=== PATIENT | female | born 1970 | race African-American/Black ===

== ENCOUNTER 2017-04-01 11:23 | Emergency (ER) | payer OTHER ==
[2017-04-01 15:15] VITALS: BP 113/73
== END 2017-04-01 15:13 | disposition home or self-care (01) ==
LOC: ED 11:23
DX: H54.62 Unqualified visual loss, left eye, normal vision right eye (principal)

== ENCOUNTER 2017-04-06 01:35 | Emergency (ER) | payer OTHER ==
[2017-04-06 06:24] VITALS: BP 139/80
== END 2017-04-06 06:24 | disposition short-term general hospital (02) ==
LOC: ED 01:35
DX: H92.02 Otalgia, left ear (principal); I10 Essential (primary) hypertension; H54.62 Unqualified visual loss, left eye, normal vision right eye; H18.602 Keratoconus, unspecified, left eye; Z79.899 Other long term (current) drug therapy; Z79.2 Long term (current) use of antibiotics; Z94.7 Corneal transplant status

== ENCOUNTER → 2017-06-11 | Outpatient (CLI) | payer OTHER ==
[2017-06-11 08:10] LABS: UA SPECIFIC GRAVITY 1.015 (1.005-1.035); microscopic required? YES; urine erythrocyte TRACE (NEGATIVE)
[2017-06-11 08:51] LABS: ALBUMIN 3.4 g/dL (3.4-5.0); ALKALINE PHOSPHATASE 110 U/L (46-116); ALT/SGPT 27 U/L (14-59); AST/SGOT 21 U/L (15-37); BILIRUBIN TOTAL 0.71 mg/dL (0.20-1.00); CALCIUM 8.8 mg/dL (8.5-10.1); CARBON DIOXIDE 28.6 mmol/L (21-32); CHLORIDE SERUM 106 mmol/L (98-107); CHOLESTEROL 159 mg/dL (<200); CHOLESTEROL/HDL RATIO 4.3; GFR1 > 60 mL/min; GLUCOSE SERUM 102 mg/dL (74-106); HDL CHOLESTEROL 37 mg/dL (40-60); POTASSIUM SERUM 3.7 mmol/L (3.5-5.1); SODIUM SERUM 141 mmol/L (136-145); TRIGLYCERIDES 106 mg/dL (<150)
[2017-06-11 08:52] LABS: TOTAL PROTEIN, SERUM 8.5 g/dL (6.4-8.2)
[2017-06-11 13:46] LABS: PLATELET COUNT 351 x10^3mcL (130-400)
[2017-06-11 14:25] LABS: ATYPICAL LYMPH 3 %; BAND NEUTROPHIL 1 % (0-10); BASOPHIL 0 % (0-2); MONOCYTE 8 % (0-7); SEGMENTED NEUTROPHILS 50 % (37-75); rbc morphology (normal/abnorm) ABNORMAL (NORMAL)
[2017-06-11 14:26] LABS: PLATELET MORPHOLOGY PLATELETS NORMAL
== END | disposition home or self-care (01) ==
LOC: LB 07:43
PROVIDERS: Family Medicine Geriatric Medicine
DX: I10 Essential (primary) hypertension (principal); Z13.21 Encounter for screening for nutritional disorder; Z13.1 Encounter for screening for diabetes mellitus; Z13.0 Encounter for screening for diseases of the blood and blood-forming organs and certain disorders involving the immune mechanism; Z13.220 Encounter for screening for lipoid disorders; Z13.29 Encounter for screening for other suspected endocrine disorder
CPT/HCPCS: 82652

== ENCOUNTER → 2017-08-30 | Outpatient (CLI) | payer OTHER ==
[2017-08-30 11:08] LABS: PLATELET COUNT 348 x10^3mcL (130-400)
[2017-08-30 11:12] LABS: ALBUMIN 3.4 g/dL (3.4-5.0); ALKALINE PHOSPHATASE 118 U/L (46-116); ALT/SGPT 40 U/L (14-59); AST/SGOT 26 U/L (15-37); BILIRUBIN DIRECT 0.16 mg/dL (0.0-0.2); BILIRUBIN TOTAL 0.6 mg/dL (0.20-1.00); CALCIUM 8.7 mg/dL (8.5-10.1); CARBON DIOXIDE 27.9 mmol/L (21-32); CHLORIDE SERUM 106 mmol/L (98-107); CREATININE SERUM 0.9 mg/dL (0.6-1.0); GFR1 > 60 mL/min; GLUCOSE SERUM 93 mg/dL (74-106); LACTIC DEHYDROGENASE (LDH) 268 U/L (100-190); POTASSIUM SERUM 3.9 mmol/L (3.5-5.1); SODIUM SERUM 143 mmol/L (136-145)
[2017-08-30 11:13] LABS: TOTAL PROTEIN, SERUM 8.3 g/dL (6.4-8.2)
[2017-08-30 11:17] LABS: BASOPHIL % 2.5 % (0-2); RED CELL DISTRIBUTION WIDTH 18.8 % (11.5-14.5)
[2017-08-30 15:05] LABS: IRON 53 ug/dL (50-170); TOTAL IRON BINDING CAPACITY 349 ug/dL (250-450)
== END | disposition home or self-care (01) ==
LOC: LB 10:04
DX: D64.9 Anemia, unspecified (principal)

== ENCOUNTER → 2017-09-30 | Outpatient (CLI) | payer OTHER ==
[2017-09-30 11:48] LABS: PLATELET COUNT 343 x10^3mcL (130-400)
[2017-09-30 11:58] LABS: RED CELL DISTRIBUTION WIDTH 23.6 % (11.5-14.5)
[2017-09-30 11:59] LABS: ALBUMIN 3.7 g/dL (3.4-5.0); BILIRUBIN DIRECT 0.15 mg/dL (0.0-0.2); BILIRUBIN TOTAL 0.53 mg/dL (0.20-1.00); TOTAL PROTEIN, SERUM 8.9 g/dL (6.4-8.2)
== END | disposition home or self-care (01) ==
LOC: CA 10:18
PROVIDERS: Internal Medicine Interventional Cardiology
DX: D57.1 Sickle-cell disease without crisis (principal)

== ENCOUNTER → 2018-01-17 | Outpatient (CLI) | payer OTHER ==
[2018-01-17 12:48] LABS: ALBUMIN 3.4 g/dL (3.4-5.0); ALKALINE PHOSPHATASE 142 U/L (46-116); ALT/SGPT 37 U/L (14-59); AST/SGOT 24 U/L (15-37); BILIRUBIN DIRECT 0.13 mg/dL (0.0-0.2); BILIRUBIN TOTAL 0.52 mg/dL (0.20-1.00); CARBON DIOXIDE 29.3 mmol/L (21-32); CHLORIDE SERUM 107 mmol/L (98-107); GFR1 > 60 mL/min; GLUCOSE SERUM 91 mg/dL (74-106); LACTIC DEHYDROGENASE (LDH) 291 U/L (100-190); POTASSIUM SERUM 4.3 mmol/L (3.5-5.1); SODIUM SERUM 142 mmol/L (136-145)
[2018-01-17 12:50] LABS: TOTAL PROTEIN, SERUM 8.3 g/dL (6.4-8.2)
[2018-01-17 13:13] LABS: BASOPHIL % 0.9 % (0-2); PLATELET COUNT 368 x10^3mcL (130-400)
[2018-01-17 13:16] LABS: RED CELL DISTRIBUTION WIDTH 18.9 % (11.5-14.5)
== END | disposition home or self-care (01) ==
LOC: LB 12:18
PROVIDERS: Family Medicine Geriatric Medicine
DX: D57.1 Sickle-cell disease without crisis (principal); I10 Essential (primary) hypertension

== ENCOUNTER → 2018-04-10 | Outpatient (CLI) | payer OTHER ==
[2018-04-10 09:51] LABS: ALBUMIN 3.4 g/dL (3.4-5.0); BILIRUBIN DIRECT 0.13 mg/dL (0.0-0.2); BILIRUBIN TOTAL 0.54 mg/dL (0.20-1.00); TOTAL PROTEIN, SERUM 8.5 g/dL (6.4-8.2)
[2018-04-10 09:55] LABS: BASOPHIL % 1.6 % (0-2); PLATELET COUNT 350 x10^3mcL (130-400)
[2018-04-10 10:19] LABS: RED CELL DISTRIBUTION WIDTH 18.5 % (11.5-14.5)
[2018-04-10 10:35] LABS: rbc morphology (normal/abnorm) ABNORMAL (NORMAL)
[2018-04-10 10:36] LABS: target cell (codocyte) 3+
== END | disposition home or self-care (01) ==
LOC: LB 09:16
DX: D57.1 Sickle-cell disease without crisis (principal)

== ENCOUNTER → 2018-06-05 | Outpatient (CLI) | payer OTHER ==
[2018-06-05 17:05] LABS: PLATELET COUNT 384 x10^3mcL (130-400)
[2018-06-05 17:13] LABS: RED CELL DISTRIBUTION WIDTH 19.8 % (11.5-14.5)
[2018-06-05 17:29] LABS: ALBUMIN 3.4 g/dL (3.4-5.0); ALKALINE PHOSPHATASE 153 U/L (46-116); ALT/SGPT 28 U/L (14-59); AST/SGOT 25 U/L (15-37); BILIRUBIN DIRECT 0.12 mg/dL (0.0-0.2); BILIRUBIN TOTAL 0.53 mg/dL (0.20-1.00); CALCIUM 8.3 mg/dL (8.5-10.1); CARBON DIOXIDE 28.2 mmol/L (21-32); CHLORIDE SERUM 106 mmol/L (98-107); CHOLESTEROL 150 mg/dL (<200); CHOLESTEROL/HDL RATIO 4.2; FREE T4 1.03 ng/dL (0.76-1.46); GFR1 > 60 mL/min; GLUCOSE SERUM 122 mg/dL (74-106); HDL CHOLESTEROL 36 mg/dL (40-60); POTASSIUM SERUM 3.4 mmol/L (3.5-5.1); SODIUM SERUM 141 mmol/L (136-145); TRIGLYCERIDES 169 mg/dL (<150)
[2018-06-05 17:52] LABS: TOTAL PROTEIN, SERUM 8.9 g/dL (6.4-8.2)
[2018-06-05 19:06] LABS: ATYPICAL LYMPH 3 %; BAND NEUTROPHIL 2 % (0-10); BASOPHIL 0 % (0-2); MONOCYTE 7 % (0-7); SEGMENTED NEUTROPHILS 53 % (37-75)
[2018-06-05 19:07] LABS: PLATELET MORPHOLOGY PLATELETS NORMAL; ovalocyte/elliptocyte 1+; rbc morphology (normal/abnorm) ABNORMAL (NORMAL); target cell (codocyte) 1+
== END | disposition home or self-care (01) ==
LOC: LB 16:02
PROVIDERS: Family Medicine Geriatric Medicine
DX: D57.1 Sickle-cell disease without crisis (principal); Z13.29 Encounter for screening for other suspected endocrine disorder; Z13.21 Encounter for screening for nutritional disorder; Z13.1 Encounter for screening for diabetes mellitus; Z13.220 Encounter for screening for lipoid disorders
CPT/HCPCS: 82652; 84439

== ENCOUNTER → 2018-08-07 | Outpatient (CLI) | payer OTHER ==
[2018-08-07 17:51] LABS: PLATELET COUNT 261 x10^3mcL (130-400)
[2018-08-07 17:57] LABS: RED CELL DISTRIBUTION WIDTH 19.3 % (11.5-14.5)
[2018-08-07 18:05] LABS: BILIRUBIN TOTAL 0.5 mg/dL (0.20-1.00); CALCIUM 8.4 mg/dL (8.5-10.1); CARBON DIOXIDE 26.6 mmol/L (21-32); CREATININE SERUM 1.1 mg/dL (0.6-1.0); POTASSIUM SERUM 3.7 mmol/L (3.5-5.1)
[2018-08-07 18:07] LABS: ALBUMIN 3.2 g/dL (3.4-5.0); TOTAL PROTEIN, SERUM 8.4 g/dL (6.4-8.2)
[2018-08-07 18:27] LABS: ATYPICAL LYMPH 1 %; BAND NEUTROPHIL 5 % (0-10); BASOPHIL 0 % (0-2); MONOCYTE 12 % (0-7); SEGMENTED NEUTROPHILS 53 % (37-75); rbc morphology (normal/abnorm) ABNORMAL (NORMAL)
[2018-08-07 18:28] LABS: PLATELET MORPHOLOGY PLATELETS NORMAL
== END | disposition home or self-care (01) ==
LOC: LB 17:36
DX: D57.1 Sickle-cell disease without crisis (principal)

== ENCOUNTER → 2018-10-06 | Outpatient (CLI) | payer OTHER | END | disposition home or self-care (01) | LOC: US 09:00 | PROC: BW40ZZZ Ultrasonography of Abdomen (ICD-10-PCS; principal; 2018-10-06) | DX: D57.1 Sickle-cell disease without crisis (principal) ==

== ENCOUNTER 2018-11-06 10:17 | Inpatient (IN) | payer OTHER ==
[~2018-11-06] VITALS: Ht 149.9 cm; Wt 68.0 kg
[2018-11-06 10:22] VITALS: Ht 149.9 cm; Wt 68.0 kg
--- NOTE | 2018-11-06 10:37 | NUR ---
PT WALKED TO THE MAILBOX THIS MORNING AND FELT SOB. PT THEN STARTED TO FEEL REALLY DIZZY. WHEN SHE WAS WALKING BACK HOME SHE STARTED TO GET THE CHILLS AND VERY DIAPHORETIC. PT STS THAT SHE HAD TO LAY DOWN TO CATCH HER BREATH. PT HAS ALSO HAD A HISTORY OF SICKEL CELL ANEMIA. PT STS THAT THESE S/S ARE NOT HOW SHE FEELS IF SHE IS IN A "CRISIS". UPON ASSESSMENT PT HAS NO S/S OF LABORED BREATHING. PT WAS STATING AT 85 SPO2 PUT ON 2L NC NOW SPO2 98. DR. DAVIS AT BEDSIDE FOR MSE. NO DISTRESS NOTED. WILL CONTINUE TO MONITOR.
--- NOTE | 2018-11-06 11:06 | NUR ---
XRAY AT BEDSIDE.
[2018-11-06 11:28] LABS: PLATELET COUNT 277 x10^3mcL (130-400)
[2018-11-06 11:43] LABS: CARBON DIOXIDE 28.1 mmol/L (21-32); CHLORIDE SERUM 108 mmol/L (98-107); CREATININE SERUM 0.8 mg/dL (0.6-1.0); GFR1 > 60 mL/min; GLUCOSE SERUM 86 mg/dL (74-106); POTASSIUM SERUM 3.7 mmol/L (3.5-5.1); SODIUM SERUM 145 mmol/L (136-145)
[2018-11-06 11:48] LABS: RED CELL DISTRIBUTION WIDTH 19.8 % (11.5-14.5)
[2018-11-06 11:49] LABS: ALBUMIN 3.6 g/dL (3.4-5.0); ALKALINE PHOSPHATASE 144 U/L (46-116); ALT/SGPT 38 U/L (14-59); AST/SGOT 29 U/L (15-37); BILIRUBIN TOTAL 0.71 mg/dL (0.20-1.00)
[2018-11-06 11:50] LABS: TOTAL PROTEIN, SERUM 9.3 g/dL (6.4-8.2)
--- NOTE | 2018-11-06 12:11 | NUR ---
PT IN POSITION OF COMFORT. VSS. WILL CONTINUE TO MONITOR.
[2018-11-06 12:48] LABS: BAND NEUTROPHIL 0 % (0-10); BASOPHIL 0 % (0-2); MONOCYTE 7 % (0-7); SEGMENTED NEUTROPHILS 60 % (37-75); rbc morphology (normal/abnorm) ABNORMAL (NORMAL)
[2018-11-06 12:49] LABS: ovalocyte/elliptocyte 1+; target cell (codocyte) 3+
--- NOTE | 2018-11-06 12:57 | NUR ---
PT WENT TO CT.
--- NOTE | 2018-11-06 13:24 | NUR ---
PT LAYING IN SEMI-HANNA'S IN GURNEY, AWAKE AND ALERT, RESP E/U, ABLE TO SPEAK IN CLEAR SENTENCES, NAD NOTED. CALL LIGHT IN REACH. NAD NOTED.
--- NOTE | 2018-11-06 13:38 | NUR ---
DR. DAVIS @ BEDSIDE DISCUSSING RESULTS & PLANNED ADMISSION.
[2018-11-06] MEDS ORDERED: ATENOLOL50 MG PO (13:40)
[2018-11-06] MEDS ORDERED: NIFEDIPINE30 MG PO (13:40)
[2018-11-06] MEDS ORDERED: GOOD SENSE OMEP20 MG PO (13:41)
[2018-11-06] MEDS ORDERED: HYDROXYUREA500 MG PO (13:41)
[2018-11-06] MEDS ORDERED: NATURE'S BLEND F1 MG PO (13:41)
[2018-11-06] MEDS ORDERED: D3 20002000 IU PO (13:41)
[2018-11-06] MEDS ORDERED: MULTIVITAMIN1 SGL PO (13:42)
--- NOTE | 2018-11-06 13:43 | NUR ---
MED REC COMPLETED USING LIST ON PT'S PHONE.
--- NOTE | 2018-11-06 14:01 | NUR ---
MEDICATED ORDERED. PLEASE SEE EMR.
--- NOTE | 2018-11-06 14:28 | NUR ---
REPORT GIVEN TO DELMY BARTON.
--- NOTE | 2018-11-06 14:46 | NUR ---
PT BEING TAKEN UPSTAIRS BY EMT AND ANIRUDH BARTON.
[2018-11-06 15:04] VITALS: BP 159/91
--- NOTE | 2018-11-06 15:05 | NUR ---
RECEIVED PT FROM Saravanan, REPORT TAKEN FROM ORALIA URIBE. PT ARRIVED ON A GUERNEY ACCOMPANIED BY FAMILY MEMBER. RESP EVEN WITH SOB. PT ON O2 N/C AT 2 LPM. VS: 99.0 F, 96, 20 159/91, 96% ON O2 LPM. ABDOMEN SOFT, NONTENDER, ROUND, NONDISTENDED. BOWEL SOUNDS ACTIVE X4. SKIN CDI, NO EDEMA NOTED. PERIPHERAL PULSES PALPABLE. PT DENIES PAIN AT THIS TIME. TELEMONITOR [address] READING NSR[address] IV CATH TO LAC PATENT, N/S LOCKED, WITH NO S/S OF INFECTION OR INFILTRATION. PT DENIES PAIN AT THIS TIME. ORIENTED PT TO ROOM AND CALL LIGHT. BED IN LOW POSITION. CALL LIGHT WITHIN REACH.
--- NOTE | 2018-11-06 15:08 | NUR ---
RECEIVED PT FROM ED VIA YONI. ORIENTED PT TO ROOM AND SURROUNDINGS. IV NOTED TO LAC PATENT AND INTACT. TELE 25 PLACED ON PT READING NSR. INSTRUCTED PT ON THE USE OF CALL LIGHT FOR ASSISTANCE. ENDORSED PT TO PRIMARY NURSE SIDDHARTH
--- NOTE | 2018-11-06 16:02 | NUR ---
N/S WITH MULTIVITAMINS STARTED. PT'S HEPARIN HELD DUE TO PT HAVING LOVENOX 80MG SQ GIVEN IN E.R. DR. HOPE AND DR. LOERA MADE AWARE. PT IS CALM, RESP EVEN AND UNLABORED WITH MILD SOB. WILL CONTINUE TO MONITOR.
--- NOTE | 2018-11-06 16:13 | NUR ---
PT RECEIVING U/S VENOUS BLE AT THIS TIME.
[2018-11-06 16:26] VITALS: BP 119/75
--- NOTE | 2018-11-06 18:35 | NUR ---
PT IS AAOX4. RESP EVEN WITH MILD SOB. ON O2 N/C AT LPM. TELE [address] READING NSR. IVF RUNNING TO LAC, PATENT, SITE WNL. PT DENIES PAIN AND DISCOMFORT. PT ASSISTED TO BATHROOM AND BACK TO BED. BED IN LOW POSITION, CALL LIGHT WITHIN REACH. WILL ENDORSE ALL CARE ON ONCOMING NOC ORALIA.
--- NOTE | 2018-11-06 19:05 | NUR ---
RECEIVED PT IN BED COMFORTABLY RESTING WITH THE FIANCEE AT THE BEDSIDE.NO DISTRESS NOTED.DENIES ANY DIZZINES AND PAIN AT THIS TIME.BANANA BAG STILL INFUSING @50ML/HR.BED IN LOWEST POSITION,CALL LIGHT WITHIN REACH. WILL CONTINUE TO MONITOR.
[2018-11-06 20:43] VITALS: BP 126/71
--- NOTE | 2018-11-07 02:00 | NUR ---
ANOTHER IV ACCESS INSERTED TO LFA FOR HEPARIN DRIP.
--- NOTE | 2018-11-07 02:30 | NUR ---
STARTED HEPARIN DRIP @1200 UNITS/HR. IV BOLUS GIVEN 5400 UNITS. WILL CONTINUE TO MONITOR.
[2018-11-07 05:46] VITALS: BP 125/70
--- NOTE | 2018-11-07 06:19 | NUR ---
PT APPEARS TO BE SLEEPING. NO SOB NOTED. NO C/O PAIN AT THIS TIME. IV PATENT AND INTACT. BED IN LOWEST POSITION,CALL LIGHT WITHIN REACH. WILL CONTINUE TO MONITOR.
[2018-11-07 07:24] LABS: PLATELET COUNT 266 x10^3mcL (130-400)
--- NOTE | 2018-11-07 07:25 | NUR ---
CARE ENDORSED TO DAY NURSE SIDDHARTH.
[2018-11-07 07:30] LABS: CALCIUM 8.6 mg/dL (8.5-10.1); CARBON DIOXIDE 27.1 mmol/L (21-32); CHLORIDE SERUM 109 mmol/L (98-107); CREATININE SERUM 0.9 mg/dL (0.6-1.0); GFR1 > 60 mL/min; GLUCOSE SERUM 100 mg/dL (74-106); POTASSIUM SERUM 3.8 mmol/L (3.5-5.1); SODIUM SERUM 145 mmol/L (136-145)
--- NOTE | 2018-11-07 07:30 | NUR ---
PT IS AAOX4. RESP EVEN AND UNLABORED. PT ON O2 NC AT 2LPM. NO SOB OR COUGH NOTED. TELE [address] READING NSR. IVF RUNNING TO LAC, SITE WNL, NO S/S OF INFILTRATION OR INFECTION NOTED. IV HEPARIN RUNNING TO LFA AT 1200 UNIT/HR. SITE WNL. PT DENIES PAIN AND DISCOMFORT AT THIS TIME. CALL LIGHT WITHIN REACH. BED IN LOW POSTION.
[2018-11-07 08:23] LABS: RED CELL DISTRIBUTION WIDTH 19.9 % (11.5-14.5)
[2018-11-07 09:13] VITALS: BP 117/70
--- NOTE | 2018-11-07 09:44 | NUR ---
PT IS SITTING UP IN BED TALKING ON PHONE. RESP EVEN AND UNLABORED. NO SOB NOTED. DENIES PAIN OR DISCOMFORT. DUE MEDS GIVEN. B/P 117/70, HR 83. PT ENCOURGAGED TO DRINK FLUIDS AND TURN AND REPOSITION WHILE IN BED. PT VERBALIZED UNDERSTANDING. CALL LIGHT WITHIN REACH.
--- NOTE | 2018-11-07 10:10 | NUR ---
LAB REPORTED PT'S PTT = 115.6. HEPARIN HAS BEEN STOPPED FOR ONE HOUR.
--- NOTE | 2018-11-07 11:10 | NUR ---
HEPARIN RESTARTED AT 1000 UNITS PER HOUR. NEW PTT ORDERED FOR 1510.
[2018-11-07 13:51] VITALS: BP 122/76; BP 133/73
[2018-11-07 13:59] LABS: ATYPICAL LYMPH 2 %; BAND NEUTROPHIL 0 % (0-10); BASOPHIL 1 % (0-2); MONOCYTE 8 % (0-7); SEGMENTED NEUTROPHILS 59 % (37-75)
[2018-11-07 14:00] LABS: PLATELET MORPHOLOGY PLATELETS DECREASED; rbc morphology (normal/abnorm) ABNORMAL (NORMAL); target cell (codocyte) 1+
--- NOTE | 2018-11-07 14:21 | NUR ---
XARELTO TO BE STARTED AT 2100 THIS DAY. PTT FOR HEPARIN THERAPEUTIC LEVEL DISCONTINUED. PT MADE AWARE AND VERBALIZED UNDERSTANDING.
[2018-11-07 16:35] VITALS: BP 115/67
--- NOTE | 2018-11-07 18:31 | NUR ---
PT IS AAOX4. RESP EVEN AND UNLABORED. PT ON R/A. NO SOB OR COUGH NOTED. DENIES PAIN OR DISCOMFORT AT THIS TIME. TELE [address] READING NSR. IV HEPARIN RUNNING TO LFA, PATENT, SITE WNL. IVF RUNNING TO LAC, SITE IS PATENT AND WNL. CALL LIGHT WITHIN REACH. BED IN LOW POSITION. WILL ENDORSE TO RHYS BARTON.
[2018-11-07 19:40] VITALS: BP 128/75
--- NOTE | 2018-11-07 19:40 | NUR ---
RECEIVED PT AWAKE ALERT AND VERBALLY RESPONSIVE.DENIES SOB/DIFFICULTY BREATHING.CLEAR BREATHSOUNDS.TOLERATING ROOMAIR @ 92%.ON HEPARIN DRIP TO BE D/C ONCE XARELTO STARTS TONIGHT ENDORSED.NO BRUISING/BLEEDING NOTED.LBM TODAY TO BROWN FORMED STOOL.DENIES CHESTPAIN.BP 128/75 MMHG,HR 84.WILL CONTINUE TO MONITOR.
--- NOTE | 2018-11-08 04:44 | NUR ---
PT SLEPT WELL.BREATHING EASY AND NON-LABORED.TOLERATED ROOM AIR.IN NO RESPIRATORY DISTRESS.DENIES CHESTPAIN.ALL NEEDS MET.WILL CONTINUE TO MONITOR.
[2018-11-08 06:17] VITALS: BP 115/71
[2018-11-08 06:21] LABS: CALCIUM 8.6 mg/dL (8.5-10.1); CARBON DIOXIDE 25.8 mmol/L (21-32); CHLORIDE SERUM 110 mmol/L (98-107); CREATININE SERUM 0.8 mg/dL (0.6-1.0); GFR1 > 60 mL/min; GLUCOSE SERUM 102 mg/dL (74-106); POTASSIUM SERUM 4.1 mmol/L (3.5-5.1); SODIUM SERUM 144 mmol/L (136-145)
[2018-11-08 06:33] LABS: PLATELET COUNT 253 x10^3mcL (130-400)
--- NOTE | 2018-11-08 07:30 | NUR ---
PT IS AAOX4. FOLLOWS COMMANDS. DENIES H/A OR DIZZINESS. RESP EVEN AND UNLABORED. LUNG SOUNDS CTA. ON R/A. NO S/S OF COUGH OR SOB. TELE [address] READING NSR. ABDOMEN SOFT, NONTENDER, NONDISTENDED. BOWELS SOUNDS ACTIVE X4. SKIN CDI, NO EDEMA NOTED. PERIPHERAL PULSES PALPABLE. IVF RUNNING TO LAC, PATENT, SITE WNL. IV CATH TO LFA N/S LOCKED, PATENT, SITE WNL. DENIES PAIN OR DISCOMFORT. CALL LIGHT WITHIN REACH. BED IN LOW POSITION.
[2018-11-08 08:24] VITALS: BP 125/66
--- NOTE | 2018-11-08 08:56 | NUR ---
PT IS SITTING UP IN BED EATING BREAKFAST. DUE MEDS GIVEN. B/P 125/66, HR 86. PAPER MAKING MACHINE OPERATOR REPORTED THAT PT HAS 2 EPISODES OF BRADYCARDIA, HR FLUCTUATED BETWEEN 42-46 BPM FOR LESS THAN A SECOND AND RETURNED TO NSR. PT IN NSR AT THIS TIME. WITH NO C/O OF CHEST PAIN OR SYNCOPE. REPORTED TO DR. HOPE. NO NEW ORDERS AT THIS TIME. WILL CONTINUE TO MONITOR. BED IN LOW POSTION. CALL LIGHT WITHIN REACH.
[2018-11-08 12:20] VITALS: BP 125/78
[2018-11-08 12:47] LABS: ATYPICAL LYMPH 5 %; BAND NEUTROPHIL 0 % (0-10); BASOPHIL 0 % (0-2); MONOCYTE 10 % (0-7); PLATELET MORPHOLOGY PLATELETS INCREASED; SEGMENTED NEUTROPHILS 40 % (37-75); rbc morphology (normal/abnorm) ABNORMAL (NORMAL); schistocyte (helmet cell) 3+; target cell (codocyte) 3+
--- NOTE | 2018-11-08 14:36 | NUR ---
RECEIVED ORDER FROM DR. LAMB, CARMELINA AND BNP X1 NOW. EKG NOW. EKG ON 11/09/18. D/C ATENOLOL 50MG PO. ATNENOLOL 25 MG PO Q DAILY FOR HTN. HOLD FOR HR LESS THAN 60 BPM. ORDERS NOTED AND CARRIED OUT. PATIENT MADE AWARE.
--- NOTE | 2018-11-08 16:30 | NUR ---
PT RECEIVING ECHO AT THIS TIME.
[2018-11-08 16:54] VITALS: BP 120/68
--- NOTE | 2018-11-08 18:31 | NUR ---
PT IS AAOX4. DENIES CHEST PAIN, PRESSURE, SOB AND COUGH. NO DISTRESS NOTED. TELE [address] READING NSR. IV CATH TO LAC PATENT, SITE WNL. IV CATH TO LAC REMOVED. BEDDING CHANGED AND PT ASSISTED WITH SHOWER. BED IN LOW POSITION. CALL LIGHT WITHIN REACH. PT DENIES PAIN AND DISCOMFORT AT THIS TIME. WILL ENDORSE ALL CARE TO NOC RN.
[2018-11-08 19:10] VITALS: BP 120/69
--- NOTE | 2018-11-08 19:10 | NUR ---
RECEIVED PT AWAKE ALERT AND VERBALLY RESPONSIVE.UP ON A CHAIR AND TOLERATED WELL.DENIES SOB/DIFFICULTY BREATHING.BP 120/69 MMHG,HR 81.BM TODAY TO FORMED BROWNISH STOOL.WILL CONTINUE TO MONITOR.
--- NOTE | 2018-11-09 04:43 | NUR ---
PT SLEPT WELL.BREATHING EASY AND NON-LABORED.DENIES SOB/DIFFICULTY BREATHING.TOLERATED ROOM AIR.NO EPISODES OF BRADYCARDIA,HR 70'-80'S.ALL NEEDS MET.WILL CONTINUE TO MONITOR.
[2018-11-09 05:19] VITALS: BP 109/55
--- NOTE | 2018-11-09 07:30 | NUR ---
RECEIVED PATIENT SITTING UP IN BED A/O X4, CLEAR SPEECH, NO NEURO DEFICITS NOTED. TELE # [address], DENIES CHEST PAIN. BREAHTING EVEN AND UNLABBORED ON RA, DENIES SOB, NO DISTRESS NOTED NOTED. DENIES ANY PAIN. IV TO LAC INTACT INFUSING MULTIVITAMIN AT 50 ML/HR FREE FROM REDNESS AND INFILTRATION. PATIENT IS CALM WITH CARE. INSTRUCTED TO CALL FOR ASSISTANCE IF NEEDED. SAFETY PRECAUTIONS MAINTAINED. WILL MONITOR.
[2018-11-09 09:51] VITALS: BP 118/87
--- NOTE | 2018-11-09 10:50 | NUR ---
DR. LAMB AT BEDSIDE TO SPEAK WITH AND ASSESS PATIENT.
--- NOTE | 2018-11-09 11:10 | NUR ---
PER DR. LAMB PATIENT IS STABLE FOR DISCHARGE HOME TODAY. WILL NOTIFY DR. HOPE.
--- NOTE | 2018-11-09 11:51 | NUR ---
DR. HOPE MADE AWARE THAT DR. LAMB SAW PATIENT AND STATED PATIENT MAY BE D/C HOME TODAY. PER DR. HOPE HE WILL PLACE D/C ORDERS.
[2018-11-09 13:13] VITALS: BP 113/72
[2018-11-09 13:39] VITALS: BP 113/72
--- NOTE | 2018-11-09 15:00 | NUR ---
PATIENT STABLE FOR DISCHARGE HOME. DISCHARGE INSTRUCTIONS, PRESCRIPTION, BELONGINGS LIST AND EDUCATION REVIEWED WITH PATIENT. PATIENT VERBALIZED UNDERSTANDING TO FOLLOW UP WITH PCP WITHIN 2-3 DAYS AND TO STOP BY DR. HOPE OFFICE TO PACKING SUPERVISOR OFF WORK NOTE. ALL QUESTIONS AND CONCERNS ADDRESSED. IV TO LAC REMOVED, CATH INTACT. ID BANDS REMOVED, TELE MONITOR REMOVED. PATIENT ASSISTED DOWN TO LOBBY ACCOMPANIED BY NURSE AID AND SIGNIFICANT OTHER. ALL PERSONAL BELONGINGS SENT HOME WITH PATIENT.
== END 2018-11-09 15:01 | disposition home or self-care (01) | DRG 175 ==
LOC: ED 10:17 → DU 14:06
PROVIDERS: Emergency Medicine; ADMIT Internal Medicine
DX: I26.92 Saddle embolus of pulmonary artery without acute cor pulmonale (principal); J96.01 Acute respiratory failure with hypoxia; D57.1 Sickle-cell disease without crisis; I10 Essential (primary) hypertension; M60.9 Myositis, unspecified; E66.9 Obesity, unspecified; Z68.30 Body mass index [BMI] 30.0-30.9, adult; Z84.89 Family history of other specified conditions; Z94.7 Corneal transplant status; R00.1 Bradycardia, unspecified; T44.7X5A Adverse effect of beta-adrenoreceptor antagonists, initial encounter; Y92.238 Other place in hospital as the place of occurrence of the external cause
CPT/HCPCS: 36600; 83880; J1642; J1644; J1650; J3490; J7030; Q0092; Q9967

== ENCOUNTER → 2018-12-17 | Outpatient (CLI) | payer OTHER ==
[~2018-12-17] MED LIST: ATENOLOL50 MG PO; D3 20002000 IU PO; GOOD SENSE OMEP20 MG PO; HYDROXYUREA500 MG PO; MULTIVITAMIN1 SGL PO; NATURE'S BLEND F1 MG PO; NIFEDIPINE30 MG PO
[2018-12-17 14:07] LABS: PLATELET COUNT 388 x10^3mcL (130-400)
[2018-12-17 14:18] LABS: ALBUMIN 3.5 g/dL (3.4-5.0); BILIRUBIN DIRECT 0.13 mg/dL (0.0-0.2); BILIRUBIN TOTAL 0.5 mg/dL (0.20-1.00); TOTAL PROTEIN, SERUM 9.1 g/dL (6.4-8.2)
[2018-12-17 14:32] LABS: RED CELL DISTRIBUTION WIDTH 19.9 % (11.5-14.5)
[2018-12-17 14:50] LABS: BAND NEUTROPHIL 3 % (0-10); MONOCYTE 7 % (0-7); SEGMENTED NEUTROPHILS 44 % (37-75)
[2018-12-17 14:58] LABS: rbc morphology (normal/abnorm) ABNORMAL (NORMAL); target cell (codocyte) 2+
[2018-12-17 14:59] LABS: PLATELET MORPHOLOGY PLATELETS NORMAL; tear drop cell (dacryocyte) 1+
== END | disposition home or self-care (01) ==
LOC: LB 13:22
DX: D57.1 Sickle-cell disease without crisis (principal)

== ENCOUNTER → 2019-02-13 | Outpatient (CLI) | payer OTHER ==
[2019-02-13 13:02] LABS: PLATELET COUNT 287 x10^3mcL (130-400)
[2019-02-13 13:12] LABS: ALBUMIN 3.6 g/dL (3.4-5.0); ALKALINE PHOSPHATASE 129 U/L (46-116); ALT/SGPT 42 U/L (14-59); AST/SGOT 21 U/L (15-37); BILIRUBIN DIRECT 0.12 mg/dL (0.0-0.2); BILIRUBIN TOTAL 0.5 mg/dL (0.20-1.00); CALCIUM 9.2 mg/dL (8.5-10.1); CARBON DIOXIDE 29.3 mmol/L (21-32); CHLORIDE SERUM 106 mmol/L (98-107); GFR1 > 60 mL/min; GLUCOSE SERUM 91 mg/dL (74-106); LACTIC DEHYDROGENASE (LDH) 270 U/L (100-190); POTASSIUM SERUM 3.8 mmol/L (3.5-5.1); SODIUM SERUM 142 mmol/L (136-145)
[2019-02-13 13:16] LABS: TOTAL PROTEIN, SERUM 8.9 g/dL (6.4-8.2)
[2019-02-13 13:23] LABS: RED CELL DISTRIBUTION WIDTH 20.4 % (11.5-14.5)
[2019-02-13 13:25] LABS: rbc morphology (normal/abnorm) ABNORMAL (NORMAL); target cell (codocyte) 2+
[2019-02-13 13:28] LABS: PLATELET MORPHOLOGY PLATELETS NORMAL
[2019-02-13 13:29] LABS: BAND NEUTROPHIL 1 % (0-10); MONOCYTE 7 % (0-7)
[2019-02-13 13:30] LABS: BASOPHIL 1 % (0-2); SEGMENTED NEUTROPHILS 41 % (37-75)
== END | disposition home or self-care (01) ==
LOC: LB 12:30
DX: D57.1 Sickle-cell disease without crisis (principal)

== ENCOUNTER → 2019-06-24 | Outpatient (CLI) | payer OTHER ==
[2019-06-24 15:33] LABS: UA SPECIFIC GRAVITY <=1.005 (1.005-1.035); microscopic required? YES; urine erythrocyte TRACE (NEGATIVE)
[2019-06-24 15:34] LABS: PLATELET COUNT 385 x10^3mcL (130-400)
[2019-06-24 15:39] LABS: RED CELL DISTRIBUTION WIDTH 19.9 % (11.5-14.5)
[2019-06-24 15:56] LABS: ALBUMIN 3.4 g/dL (3.4-5.0); BILIRUBIN DIRECT 0.11 mg/dL (0.0-0.2); BILIRUBIN TOTAL 0.38 mg/dL (0.20-1.00)
[2019-06-24 15:58] LABS: TOTAL PROTEIN, SERUM 8.9 g/dL (6.4-8.2)
[2019-06-24 16:05] LABS: BAND NEUTROPHIL 0 % (0-10); BASOPHIL 0 % (0-2); SEGMENTED NEUTROPHILS 49 % (37-75)
[2019-06-24 16:06] LABS: rbc morphology (normal/abnorm) ABNORMAL (NORMAL)
== END | disposition home or self-care (01) ==
LOC: MA 14:34
PROC: BH02ZZZ Plain Radiography of Bilateral Breasts (ICD-10-PCS; principal; 2019-06-24)
DX: Z12.39 Encounter for other screening for malignant neoplasm of breast (principal); Z12.31 Encounter for screening mammogram for malignant neoplasm of breast; D57.1 Sickle-cell disease without crisis; I26.99 Other pulmonary embolism without acute cor pulmonale; Z79.01 Long term (current) use of anticoagulants
CPT/HCPCS: 77067

== ENCOUNTER → 2019-09-03 | Outpatient (CLI) | payer OTHER ==
[2019-09-03 12:46] LABS: microscopic required? YES; urine erythrocyte 1+ (NEGATIVE)
[2019-09-03 13:05] LABS: PLATELET COUNT 310 x10^3mcL (130-400)
[2019-09-03 13:25] LABS: RED CELL DISTRIBUTION WIDTH 22.3 % (11.5-14.5)
[2019-09-03 13:27] LABS: ALBUMIN 3.6 g/dL (3.4-5.0); ALKALINE PHOSPHATASE 116 U/L (46-116); ALT/SGPT 26 U/L (14-59); AST/SGOT 18 U/L (15-37); BILIRUBIN TOTAL 0.5 mg/dL (0.20-1.00); CARBON DIOXIDE 30.3 mmol/L (21-32); CHLORIDE SERUM 104 mmol/L (98-107); CHOLESTEROL 163 mg/dL (<200); FREE T4 0.97 ng/dL (0.76-1.46); GFR1 > 60 mL/min; GLUCOSE SERUM 87 mg/dL (74-106); POTASSIUM SERUM 3.9 mmol/L (3.5-5.1); SODIUM SERUM 137 mmol/L (136-145); TRIGLYCERIDES 72 mg/dL (<150)
[2019-09-03 13:28] LABS: CHOLESTEROL/HDL RATIO 4.9; HDL CHOLESTEROL 33 mg/dL (40-60); TOTAL PROTEIN, SERUM 9.4 g/dL (6.4-8.2)
[2019-09-03 13:42] LABS: rbc morphology (normal/abnorm) ABNORMAL (NORMAL)
[2019-09-03 13:46] LABS: IRON 46 ug/dL (50-170); TOTAL IRON BINDING CAPACITY 374 ug/dL (250-450)
== END | disposition home or self-care (01) ==
LOC: LB 12:21
DX: I10 Essential (primary) hypertension (principal); D64.9 Anemia, unspecified; Z13.29 Encounter for screening for other suspected endocrine disorder; Z13.21 Encounter for screening for nutritional disorder; Z13.220 Encounter for screening for lipoid disorders
CPT/HCPCS: 82652; 84439